=== PATIENT | male | born 1945 | race Caucasian/White ===

== ENCOUNTER 2017-08-13 06:16 | Day surgery (SDC) | payer MEDICARE, OTHER ==
[~2017-08-13] VITALS: Ht 170.2 cm; Wt 68.0 kg
[~2017-08-13 06:16] MED LIST: AMLO5 PO; ASCO500 PO; ASPI81CH PO; ASPI81EC PO; AVADART PO; Advil200 M1 PO; CHOLESTEROL MED?; CIPR500 PO; DOXA4; FINA5 PO; FISH1000 PO; HYDACE5 PO; HYDR1TAB94 PO; IRON150C PO; LOVA20 PO; Lovastatin20 MG PO; METF500 PO; METO25ER PO; MULVITMIND PO; NIAC250ER PO; Naprosyn500 MG PO; Norco 5-325 Ta1 EACH PO; OMEP20ER PO; PROM25 PO; TAMS.4ER PO; [UNRECOGNIZED DRUG - OTHER]
--- NOTE | 2017-08-13 07:16 | NUR ---
Ambulatory in [facility] warming gown applied. Surgical site prepped with 2% Chlorhexidine cloth wipe. History, Chart, Medications and Allergies reviewed before start of procedure.Lungs clear T/O to Auscultation. Patient confirms NPO status EXCEPT FOR B/P MED IN THE AM. Agrees with scheduled surgery. Patient reports completing Chlorhexadine shower X2 prior to admission to hospital.
--- NOTE | 2017-08-13 18:10 | NUR ---
SHIFT SUMMARY POD#0 LAMINECTOMY L3-4/L4-5. VSS. DRESSING GAUZE/TAPE CDI. DENIES PAIN. NAUSEA TX X1 ZOFRAN. TOLERATING PO NOW. CBGS AC/HS CNI, PT REP NOT DIABETIC AND DOES NOT WANT CBGS. ROSA OUT IN OR, PT HAS NOT YET VOIDED, SMALL AMOUNT OF BLOOD FROM PENIS. AMB SBA W/FWW TO BRP. WILL CTM UNTIL REPORT GIVEN TO ONCOMING COLLETTE PADILLA.
--- NOTE | 2017-08-14 07:38 | NUR ---
SHIFT SUMMARY PT IS POD 1 LAMINECTOMY L3-L5. PT IS A&O, INDEP STANDING AT EDGE OF BED, INDEP/SBA TO BR. WILL NEED PT BEFORE DISCHARGE. PAIN CONTROLLED WITH SCHEDULED TYLENOL. DRESSING TO LOWER BACK C/D/I. NOW VOIDING WITHOUT ISSUE. REPORT PASSED TO ONCOMING RN.
[2017-08-14] MEDS ORDERED: ACET500 PO (10:40)
[2017-08-14] MEDS ORDERED: OXYC5 PO (10:41)
--- NOTE | 2017-08-14 12:27 | NUR ---
DISCHARGE PT DISCHARGED HOME AT 1142. PT PROVIDED WITH WRITTEN AND VERBAL DISCHARGE INSTRUCTIONS. PT PROVIDED WITH REPLACEMENT DRESSING AND EDUCATED ABOUT [employer] DRESSINGS. PT ESCORTED OUT TO MEET HIS FRIEND BY NICHOLAS PRINCE.
[2018-11-28] MEDS ORDERED: TAMS.4ER PO (20:27)
== END 2017-08-14 11:49 | disposition home or self-care (01) ==
LOC: ORSCMMR 06:16 → ORD 07:30 → SURS 13:00 → ORSCMMR 13:01 → SURS 08-14 11:49
PROVIDERS: Orthopaedic Surgery
PROC: 00NY0ZZ Release Lumbar Spinal Cord, Open Approach (ICD-10-PCS; principal; 2017-08-13 07:30)
DX: M48.062 Spinal stenosis, lumbar region with neurogenic claudication (principal); M54.16 Radiculopathy, lumbar region; I10 Essential (primary) hypertension; I25.2 Old myocardial infarction; G62.9 Polyneuropathy, unspecified; Z79.899 Other long term (current) drug therapy; Z79.82 Long term (current) use of aspirin
CPT/HCPCS: 82947; 97161; G8978; G8979; G8980; J0690; J1040; J1100; J1885; J2250; J2405; J2710; J3010; J3370; J7120

== ENCOUNTER 2020-02-02 08:36 | Day surgery (SDC) | payer MEDICARE, OTHER ==
[~2020-02-02] VITALS: Ht 170.2 cm; Wt 69.6 kg
[~2020-02-02 08:36] MED LIST changes: +ACET500 PO; +ASPI325 PO; +Naproxen500 MG PO; +OXYC5 PO; +[UNRECOGNIZED DRUG - OTHER] PO
--- NOTE | 2020-02-02 09:58 | NUR ---
Ambulatory in Day Surgery. Surgical site prepped with 2% Chlorhexidine cloth wipe. History, Chart, Medications and Allergies reviewed before start of procedure.Lungs clear T/O to Auscultation. Patient confirms NPO status and agrees with scheduled surgery. Pre-Op teaching done. Pt verbalizes understanding. Patient States Post-Procedure ride home has been arranged.
--- NOTE | 2020-02-02 14:13 | NUR ---
LATE ENTRY 1348 ASSUMED CARE OF PT. TOOK REPORT FROM RANDY PAVON. PT SITTING UP IN GURNY, TALKING AND EATING PUDDING. PT DENIES ANY FURTHER NEEDS AT THIS TIME. VSS. ROOM AIR. WILL CONTINUE TO MONITOR.
--- NOTE | 2020-02-02 14:15 | NUR ---
PT WISHES TO REST "A BIT LONGER" PRIOR TO D/C. WILL CONTINUE TO MONITOR.
--- NOTE | 2020-02-02 14:45 | NUR ---
discharge Patient up to Ambulate independently. Gait steady. Discharge instructions reviewed with patient. Patient verbalizes understanding. Copy given to patient to take home. Dressing to procedure site clean, dry, intact with no visible drainage, swelling, erythema or bruising noted. Patient States Post-Procedure ride home has been arranged. Discharged via wheelchair to private car for ride home. hard copy rx given
== END 2020-02-02 23:09 | disposition home or self-care (01) ==
LOC: ORSCMMR 08:36 → ORD 10:00 → ORSCMMR 10:00
PROVIDERS: Surgery
PROC: 0YUA4JZ Supplement Bilateral Inguinal Region with Synthetic Substitute, Percutaneous Endoscopic Approach (ICD-10-PCS; principal; 2020-02-02 10:00)
PROC: 8E0W4CZ Robotic Assisted Procedure of Trunk Region, Percutaneous Endoscopic Approach (ICD-10-PCS; principal; 2020-02-02 10:00)
DX: K40.21 Bilateral inguinal hernia, without obstruction or gangrene, recurrent (principal); I10 Essential (primary) hypertension; E78.5 Hyperlipidemia, unspecified; I25.10 Atherosclerotic heart disease of native coronary artery without angina pectoris; I25.2 Old myocardial infarction; G47.33 Obstructive sleep apnea (adult) (pediatric); Z87.891 Personal history of nicotine dependence; E11.9 Type 2 diabetes mellitus without complications; Z86.73 Personal history of transient ischemic attack (TIA), and cerebral infarction without residual deficits; Z79.899 Other long term (current) drug therapy; Z79.82 Long term (current) use of aspirin; Z79.84 Long term (current) use of oral hypoglycemic drugs
CPT/HCPCS: 49651; S2900; A9270-GY; C1781; J0690; J1100; J2250; J2405; J2704; J2710; J3010; J7120

== ENCOUNTER 2023-05-20 09:12 | Day surgery (SDC) | payer MEDICARE, BC ==
[2023-05-20] VITALS (16 sets, daily range): BP systolic 96–151; BP diastolic 54–82
[~2023-05-20] VITALS: Ht 167.6 cm; Wt 65.4 kg
[~2023-05-20 09:12] MED LIST changes: +AMLO10 PO
[2023-05-20] MEDS ORDERED: TAMS.4ER PO (09:39)
--- NOTE | 2023-05-20 10:14 | NUR ---
PATIENT DENIES HX DIABETES. DISCUSSED THIS WITH DR TRAYLOR. PER DR. TRAYLOR, NO BLOOD SUGAR NEEDED PRE-PROCEDURE.
--- NOTE | 2023-05-20 10:32 | NUR ---
05/20/23 1032 Em Tobar HISTORY, CHART, MEDICATIONS AND ALLERGIES REVIEWED BEFORE START OF PROCEDURE. PATIENT CONFIRMS NPO STATUS AND AGREES WITH SCHEDULED PROCEDURE. 3-LEAD EKG REVIEWED WITH PHYSICIAN PRIOR TO START OF PROCEDURE. MONITOR INTACT WITH CONTINUOUS PULSE OXIMETRY,CAPNOGRAPHY, 3-LEAD EKG, INTERMITTENT BP. SUPPLEMENTAL O2 TO BE TITRATED THROUGHOUT PROCEDURE TO MAINTAIN O2 SATURATION ABOVE 90%. PATIENT DETERMINED TO BE ASA APPROPRIATE FOR PROPOFOL SEDATION PRIOR TO START OF PROCEDURE BY
--- NOTE | 2023-05-20 10:53 | NUR ---
PT ALERT AND ORIENTED X3. APPLE JUICE GIVEN PER REQUSET. ABLE TO MOVE BY SELF IN BED. NO COMPLAINTS AT THIS TIME. SPOUSE AT BEDSIDE.
--- NOTE | 2023-05-20 11:11 | NUR ---
TOLERATING PO FLUIDS WELL. PT DESIRES TO GO HOME. Patient up to Ambulate independently. Gait steady. Discharge instructions reviewed with patient. Patient verbalizes understanding. Copy given to patient to take home. Patient States Post-Procedure ride home has been arranged. Discharged via wheelchair to private car for ride home.
== END 2023-05-20 11:13 | disposition home or self-care (01) ==
LOC: ORSCMMR 09:12 → ORD 09:30 → ORSCMMR 09:30
PROVIDERS: Internal Medicine Gastroenterology
PROC: 0DJD8ZZ Inspection of Lower Intestinal Tract, Via Natural or Artificial Opening Endoscopic (ICD-10-PCS; principal; 2023-05-20 09:30)
DX: Z12.11 Encounter for screening for malignant neoplasm of colon (principal); Z86.010 Personal history of colon polyps; I25.2 Old myocardial infarction; E11.9 Type 2 diabetes mellitus without complications; E78.00 Pure hypercholesterolemia, unspecified; Z79.84 Long term (current) use of oral hypoglycemic drugs; Z79.899 Other long term (current) drug therapy; Z87.891 Personal history of nicotine dependence; N40.0 Benign prostatic hyperplasia without lower urinary tract symptoms
CPT/HCPCS: J2704; J7120

== ENCOUNTER 2024-06-01 18:37 | Emergency (ER) | payer MEDICARE, BC ==
[~2024-06-01] VITALS: Ht 165.1 cm; Wt 63.5 kg
[2024-06-01 20:42] LABS: Source, Urine Foley catheter
[2024-06-01 20:58] LABS: Appearance, Urine Bloody (Clear); Bilirubin, Urine Neg (Neg); Blood, Urine 5+ (Neg); Color, Urine Red (P-Yellow); Glucose Qualitative, Urine Neg (Neg); Ketones, Urine 1+ (Neg); Leukocyte Esterase, Urine Neg (Neg); Nitrite, Urine Neg (Neg); Protein, Urine 4+ (Neg); Urobilinogen, Urine NORM (Normal); pH, Urine 6.5 (5.0-8.0)
[2024-06-01 21:00] LABS: Red Blood Cells, Urine TNTC /hpf (0-2)
[2024-06-01 21:01] LABS: Bacteria Few /hpf; Squamous Epithelial Cells Few /hpf (Few); White Blood Cells, Urine 0-2 /hpf (0-5)
[2024-06-01 21:07] LABS: BASOPHILS ABSOLUTE AUTO 0.03 K/mm3 (0.00-0.23); BASOPHILS PERCENT AUTO 0 % (0-2); EOSINOPHILS ABSOLUTE AUTO 0.02 K/mm3 (0.00-0.68); EOSINOPHILS PERCENT AUTO 0 % (0-6); Hematocrit 37.6 % (37.0-53.0); Hemoglobin 12.7 g/dL (13.5-17.5); IMMATURE GRAN ABSOLUTE AUTO 0.04 K/mm3 (0.00-0.10); IMMATURE GRAN PERCENT AUTO 0 % (0-1); LYMPHOCYTES ABSOLUTE AUTO 0.66 K/mm3 (0.84-5.20); LYMPHOCYTES PERCENT AUTO 6 % (21-46); MONOCYTES ABSOLUTE AUTO 0.69 K/mm3 (0.16-1.47); MONOCYTES PERCENT AUTO 6 % (4-13); Mean Corpuscular HGB 31.1 pg (26.0-34.0); Mean Corpuscular HGB Conc 33.8 g/dL (31.5-36.5); Mean Corpuscular Volume 92 fL (80-100); Mean Platelet Volume 9.4 fL (9.1-12.4); NEUTROPHILS ABSOLUTE AUTO 9.66 K/mm3 (1.96-9.15); NEUTROPHILS PERCENT AUTO 87 % (41-73); Platelet Count 168 K/mm3 (150-400); RDW Standard Deviation 43.6 fL (35.1-46.3); Red Blood Cell Count 4.09 M/mm3 (4.30-5.90)
[2024-06-01 21:26] LABS: Albumin, Blood 3.8 g/dL (3.4-5.0); Albumin/Globulin Ratio 1.2 (0.8-1.8); Bilirubin, Total 0.6 mg/dL (0.1-1.0); Bun/Creatinine Ratio 21.3 (12.0-20.0); Calcium, Blood 8.8 mg/dL (8.5-10.1); Creatinine, Blood 1.08 mg/dL (0.60-1.20); Globulin, Blood 3.1 g/dL (2.2-4.0); Potassium, Blood 4.5 mmol/L (3.5-5.5); Total Protein, Blood 6.9 g/dL (6.4-8.2)
[2024-06-01 22:15] VITALS: BP 140/84
== END 2024-06-01 22:40 | disposition home or self-care (01) ==
LOC: ER 18:37
PROVIDERS: Physician Assistant
DX: R33.9 Retention of urine, unspecified (principal); R31.9 Hematuria, unspecified; Z79.899 Other long term (current) drug therapy; Z79.84 Long term (current) use of oral hypoglycemic drugs; Z79.82 Long term (current) use of aspirin; Z87.891 Personal history of nicotine dependence
CPT/HCPCS: 51702; 51798; 80053; 81001; 85025; 99283

== ENCOUNTER 2024-06-03 10:02 | Emergency (ER) | payer MEDICARE, BC ==
[~2024-06-03] VITALS: Ht 170.2 cm; Wt 65.8 kg
[2024-06-03 10:22] VITALS: BP 120/62
== END 2024-06-03 11:18 | disposition home or self-care (01) ==
LOC: ER 10:02
DX: Z46.6 Encounter for fitting and adjustment of urinary device (principal); Z79.84 Long term (current) use of oral hypoglycemic drugs; Z79.82 Long term (current) use of aspirin; Z79.899 Other long term (current) drug therapy
CPT/HCPCS: 99282